=== PATIENT | male | born 1965 | race Caucasian/White ===

== ENCOUNTER 2016-10-04 12:25 | Emergency (ER) | payer OTHER ==
[~2016-10-04 12:25] MED LIST: ALBUTEROL17 GM INH; ALDACTONE PO; ALDACTONE25 MG PO; CARVEDILOL6.25 MG PO; COLCHICINE0.6 M1 PO; COREG6.25 MG PO; COUMADIN PO; COUMADIN5 MG PO; FERROUS GLUCON325 M1 PO; FUROSEMIDE40 MG PO; HYDRALAZINE HCL25 MG PO; HYDROCHLOROTH12.5 MG PO; HYDROCHLOROTHIA25 MG PO; ISOSORBIDE DINI10 MG PO; K-DUR20 ME1 PO; LASIX PO; LASIX20 MG PO; LISINOPRIL20 MG PO; LORCET HD 10-31 EACH PO; LOVENOX80 MG/0.8 INJ; PREDNISONE1 MG PO; SPIRIVA18 MCG INH; TYLENOL325 M1 PO; ZESTRIL10 M1 PO
== END 2016-10-04 13:43 | disposition home or self-care (01) ==
LOC: CED 12:25 → CFTX 12:25
DX: M10.9 Gout, unspecified (principal); I25.10 Atherosclerotic heart disease of native coronary artery without angina pectoris; I10 Essential (primary) hypertension
CPT/HCPCS: 99282; 99283